=== PATIENT | female | born 1970 | race Caucasian/White ===

== ENCOUNTER 2024-10-15 06:26 | Emergency (ER) | payer MEDICARE, MEDICAID, SELFPAY ==
[2024-10-15 06:28] VITALS: BP 124/61; PULSE 90; RESP 20; TEMP 36.4; O2SAT 97; BMI 28.7
--- OUTSIDE RECORDS SUMMARY | 2024-10-15 06:41 | XMS_ITS | Patient Health Record ---
Author Organization [facility] Address [address] [place] [address] Care Team Providers [facility] Assistant Name Role Phone Oralia Capone Unavailable [phone] Reason For Referral No Information Medications Medication SIG (Take, Route, Fr equency, Duration) Notes Start Date End Date Status MetroGel-Vaginal 0.75 % 1 application at bedtime Vaginal Once a day; Duration: 5 day(s) 07/05/2016 Active miSOPROStol 200 MCG 2 tabs Orally the ni ght prior to procedure; Duration: 1 days 07/05/2016 Active traZODone HCl 50 MG Orally Active Social History Tobacco Use: Social History Observation Description Date Details (start date - stop date) Current Smoker NA - NA Tobacco Use/Smoking Question Answer Notes Are you a current every day smoker Alcohol Screen (Audit-C) Question Answer Notes Did you have a drink contain ing alcohol in the past year? Yes How often did you have a dri nk containing alcohol in the past year? Monthly or less (1 point) Points 1 Section Notes: 1ppd Problems Problem Type SNOMED Code ICD Code Onset Dates Problem Status W/U Status Risk Notes Problem Insomnia (284094091) Insomnia, unspecified (G47.00) Active confirmed Problem Postcoital bleeding (70464497) Postcoital and contact bleeding (N93.0) Active confirmed Problem Tobacco use (372136664) Tobacco use (Z72.0) Active confirmed Problem History of psychiatric disorder (405060222) Personal history of other mental and behavioral disorders (Z86.59) Active confirmed Plan Of Treatment Pending Test Test Name Order Date Ultrasound : Sono Hystergram 07/05/2016 ANTI-HEPATITIS C 07/05/2016 COMPLETE BLOOD COUNT 07/05/2016 HEP. B SURF. AG 07/05/2016 THIN PREP,HPV,CELSA IF HPV+ (>29YR)(SCRN) 07/05/2016 TSH 07/05/2016 MM Digital Mammo Screening 07/05/2016 SYPHILIS TESTING 07/05/2016 HIV AB-AG 4TH GENERATION 07/05/2016 Insurance Providers Payer Name Payer Address Payer Phone Subscriber Number Group Number Insured Name Patient Relationship to Insured Coverage Start Date Coverage End Date MEDICARE [address] [place] [id number] ISAAC DUMONT Self - patient is the insured Medical (General) History Medical History History ICD Code Tobacco use Z72.0 Postcoital and contact bleeding N93.0 Insomnia, unspecified G47.00 Personal history of other mental and beh avioral disorders Z86.59 Surgical History Surgery Date(Month/Year) BTL 1990 CHOLECYSTECTOMY C SECTION 1990 CRYOSURGERY 1991 PNEUMOTHORAX 1991 BACK SURGERY 2012 LEEP 2012
[2024-10-15 06:58] LABS: MANUAL DIFF FLAG NO
[2024-10-15 06:59] LABS: Hematocrit 35.6 % (37.0-47.0); Hemoglobin 12.3 g/dl (12.0-16.0); Imm Gran Abs Auto 0.05 X10*3/uL (0.00-0.03); Imm Gran Pct Auto 0.4 % (0.0-0.4); Lymphocytes Absolute Auto 1.9 X10*3/uL (1.2-4.9); Mean Corpuscular HGB Conc 34.6 g/dl (31.0-35.0); Mean Corpuscular Hemoglobin 31.2 pg (27.0-33.0); Mean Corpuscular Volume 90.4 fL (80.0-98.0); NRBC Abs Auto 0.000 X10*3/uL (0.0-0.012); NRBC Pct Auto 0.0 /100WBC (0.0-0.2); Platelet Count 323 X10*3/uL (160-400); Red Blood Count 3.94 X10*6/uL (4.20-5.50); White Blood Count 11.6 X10*3/uL (4.8-10.8)
[2024-10-15 07:17] LABS: Alanine Aminotransferase 15 U/L (0-31); Albumin Level 4.0 g/dL (3.5-5.0); Alkaline Phosphatase 133 U/L (39-117); Anion Gap 12 (12-20); Aspartate Amino Transferase 22 U/L (5-31); Blood Urea Nitrogen 21 mg/dL (9-16); Calcium 9.1 mg/dL (8.4-10.2); Carbon Dioxide 23 mmol/L (22-29); Chloride 108 mmol/L (96-108); Creatinine Clr Calc Pharmacy 109.6; Estimated Glomerular Filt Rate > 60; Potassium 3.5 mmol/L (3.3-5.1); Sodium 139 mmol/L (135-145); Total Protein 6.7 g/dL (6.5-8.0)
--- NOTE | 2024-10-15 07:33 | ED_ITS ---
HPI - General Adult General Chief complaint: Headache Stated complaint: headache Time Seen by Provider: 10/15/24 07:01 Source: patient Mode of arrival: ambulatory Limitations: no limitations History of Present Illness ED Provider: HPI narrative: 53-year-old woman presenting with redness of right leg after she was bitten by a cat a few days ago, on sure when was her last tetanus shot right around 10 years ago, currently taking penicillin VK for dental infection, and separately mentioned that she also has recurrent headaches and takes sumatriptan and amitriptyline and needs to see a neurologist and needs a CPAP, but no fevers or chills or atypical features or drainage from the ears a primarily she was here for the ankle redness and swelling. This was patient's own cat that was startled when she dropped something. Related Data Previous Rx's ?Medication ?Instructions ?Recorded amoxicillin 875 mg-potassium 1 tab PO BID 7 days #14 t abs 10/15/24 clavulanate 125 mg tablet trxjhbfcdp-sgyoyjfoacgrf-rszocfbi 1 cap PO Q8H PRN hea dache 3 days 10/15/24 50 mg-300 mg-40 mg capsule #10 caps (Fioricet) Allergies Allergy/AdvReac Type Severity Reaction Status Date / Time No Known Allergies Allergy Verified 10/15/24 06:29 Review of Systems 2 Constitutional: Constitutional: Reports as per [facility] Social History Social History Smoked in Last 30 Days: Yes Use of substances other than those prescribed or required for medical reasons: No Advance Directives: No Advance Directives Information Provided: Yes Physical Exam ED Vital Signs: Vital Signs - 24 hr 10/15/24 06:28 10/15/24 07:56 Temperature 97.6 F 97.6 F Pulse Rate 90 90 Respiratory Rate 20 20 Blood Pressure 124/61 124/61 Pulse Oximetry 97 97 Oxygen Delivery Method Room Air Room Air BMI result Body Mass Index 28.7 Const Other: * Gen: ?Overall well-appearing patient * Resp: ?No wheezing rales rhonchi no stridor moving air well * Abd: ?Bowel sounds are present, no tenderness no rebound no rigidity * MSK: FROM, strength 5/5 all extremities * Skin: 2 puncture wounds on the right leg, with some local erythema, local swelling around the ankle, distal pulses intact, no edema of the ankle or knee * Neuro: ?Alert and oriented x3, moving upper and lower extremities symmetrically, no obvious facial asymmetry noted Medications Administered Discontinued Medications Generic Name Dose Route Start Last Admin Trade Name Solange PRN Reason Stop Dose Admin Acetaminophen/Butalbital/Caffeine 1 tab 10/15/24 07:33 10/15/24 07:41 Butalb/Acetamin/Caff 50/325/40 Tablet PO 10/15/24 07:34 1 tab ONCE ONE Administration Diphtheria/Tetanus/Acell Pertussis 0.5 ml 10/15/24 07:35 10/15/24 07:41 Diphth,Pertus(Acell),Tet Adult 0.5 Ml Syringe IM 10/15/24 07:36 0.5 ml .ONCE ONE Administration Medical Decision Making Medical Decision Making MDM Narrative: No indication for rabies, we will update tetanus, we will switch over antibiotics, we will add on Fioricet as she has been taking her regular medications, however her visit was here for right leg cellulitis and I discussed with her that as far as managing her recurrent migraines this should be done on outpatient basis and there were no red flags to consider further imaging such as CT or MRI based on considerations as below. Differential Diagnosis Differential Diagnoses: The differential diagnosis associated with the presentation includes (Subarachnoid hemorrhage, cavernous venous thrombosis, acute angle closure glaucoma, temporal arteritis, meningitis, migraine headache, tension headache) Lab Data [facility] Lab Attestation statement: I reviewed the patient's lab results. 10/15/24 06:51 10/15/24 06:51 Labs: Lab Results 10/15/24 Range/Units 06:51 WBC 11.6 H (4.8-10.8) X10*3/uL RBC 3.94 L (4.20-5.50) X10*6/uL Hgb 12.3 (12.0-16.0) g/dl Hct 35.6 L (37.0-47.0) % MCV 90.4 (80.0-98.0) fL MCH 31.2 (27.0-33.0) pg MCHC 34.6 (31.0-35.0) g/dl RDW 13.1 (11.0-16.0) % Plt Count 323 (160-400) X10*3/uL MPV 9.3 L (9.4-12.3) fL Immature Gran % (Auto) 0.4 (0.0-0.4) % Neut % (Auto) 68.3 (45-73) % Lymph % (Auto) 16.8 L (20-40) % [place] % (Auto) 8.4 (2-11) % Eos % (Auto) 5.4 H (0-4) % Baso % (Auto) 0.7 (0-2) % Lymph # (Auto) 1.9 (1.2-4.9) X10*3/uL [place] # (Auto) 1.0 (0.1-1.2) X10*3/uL Eos # (Auto) 0.6 H (0.0-0.4) X10*3/uL Baso # (Auto) 0.1 (0.0-0.2) X10*3/uL Abs Immat Gran (auto) 0.05 H (0.00-0.03) X10*3/uL Absolute Neuts (auto) 7.9 (2.0-8.3) x10*3/uL Absolute Nucleated RBC 0.000 (0.0-0.012) X10*3/uL Nucleated RBC % (auto) 0.0 (0.0-0.2) /100WBC Sodium 139 (135-145) mmol/L Potassium 3.5 (3.3-5.1) mmol/L Chloride 108 (96-108) mmol/L Carbon Dioxide 23 (22-29) mmol/L Anion Gap 12 (12-20) BUN 21 H (9-16) mg/dL Creatinine 0.65 (0.5-1.4) mg/dL Estim Creat Clear Calc 109.6 Estimated GFR > 60 Random Glucose 117 H (60-115) mg/dL Calcium 9.1 (8.4-10.2) mg/dL Total Bilirubin 0.2 (0.0-1.0) mg/dL AST 22 (5-31) U/L ALT 15 (0-31) U/L Alkaline Phosphatase 133 H (39-117) U/L Total Protein 6.7 (6.5-8.0) g/dL Albumin 4.0 (3.5-5.0) g/dL Beta HCG, Quant < 2 mIU/mL Tests considered The following testing was considered but not selected: CT brain Prescription Management I considered prescription management with: Pain Medication and Antibiotic Discharge Plan Discharge Clinical Impression: Migraine Cat bite Qualifiers: Encounter type: initial encounter Qualified Code(s): W55.01XA - Bitten by cat, initial encounter Patient Disposition: Home, Self-Care Instructions: Animal Bite (ED) Additional Instructions: Your tetanus shot was updated today, start taking Augmentin instead of penicillin VK you have been taking for a dental infection, elevate and ice the area, we discussed return precautions such as spiking fevers, significant redness going up to the knee, it will take a few days for the antibiotics to work, I am providing you with a few days' worth of Fioricet maybe that will help you with your recurrent headache, please follow up with the PCP and if you have worsening headaches and any other issues such as spiking fevers, drainage of the ears, upper or lower extremity weakness or anything else atypical please come back to the ER. Prescriptions: New amoxicillin-pot clavulanate 875-125 mg tablet 1 tab PO BID 7 Days Qty: 14 0RF tcqrqpyrse-jayrlxfwhoxvt-gxao [Fioricet] 50-300-40 mg capsule 1 cap PO Q8H PRN (Reason: headache) 3 Days Qty: 10 0RF Interventions: ED Discharge Assessment Last Done: 10/15/24 07:56 Discharge Date/Time: 10/15/24 07:57 Print Language: Nicaraguan
[2024-10-15] MEDS: Butalb/Acetamin/Caff 50/325/40 TABLET 1 TAB PO (07:41)
[2024-10-15] MEDS: Diphth,Pertus(ACell),Tet Adult 0.5 ML SYRINGE IM (07:41)
[2024-10-15 07:56] VITALS: BP 124/61; PULSE 90; RESP 20; TEMP 36.4; O2SAT 97
== END 2024-10-15 07:57 | disposition home or self-care (01) ==
PROVIDERS: Emergency Provider Emergency Medicine
DX: S81.851A Open bite, right lower leg, initial encounter (principal); G43.909 Migraine, unspecified, not intractable, without status migrainosus; R10.2 Pelvic and perineal pain; W55.01XA Bitten by cat, initial encounter; Y93.9 Activity, unspecified; Y92.9 Unspecified place or not applicable; Y99.8 Other external cause status; Z23 Encounter for immunization
CPT/HCPCS: 36415; 80053; 84702; 85025; 90471; 90715; 99283; 99284